=== PATIENT | male | born 1985 | race Two or more races ===

== ENCOUNTER 2017-07-07 13:18 | Emergency (ER) | payer OTHER ==
[2017-07-07 13:33] VITALS: BP 121/72; PULSE 60; RESP 18; TEMP 97.2; O2SAT 95
[2017-07-07] MEDS ORDERED: TDAP ADULT 0.5 ML INJ (BOOSTRIX) IM ONE (13:34)
--- NOTE | 2017-07-07 14:04 | EDPHY ---
H & P Time Seen by Provider: 07/07/17 13:31 HPI/ROS: 32-year-old male presents complaining of right 2nd finger pain and nail bed injury that occurred yesterday. He was shoveling and with a shoveling motion ran into a PVC pipe injuring his finger, he cleaned it thoroughly yesterday it had a little bit of bleeding, he presents today because he has pain radiating from his finger into his right forearm on the radial aspect. No numbness or tingling in finger. No fevers or chills Review of systems As per HPI General no fever no chills no weakness HEENT no eye pain no eye discharge. No eye redness, no sore throat Respiratory no cough, no shortness of breath Musculoskeletal no myalgias, no joint pain Heme no easy bruising, no easy bleeding Endo no polyuria, no polydipsia Skin no rashes, no pruritus Past Medical/Surgical History: Noncontributory Social History: Denies drug use, alcohol socially Smoking Status: Former smoker Physical Exam: 32-year-old male Alert and oriented in no acute distress nontoxic appearance, afebrile Atraumatic normocephalic Neck no JVD Lungs clear to auscultation, no respiratory distress Heart regular rate and rhythm Extremities no cyanosis clubbing edema Right hand Right 2nd finger-good capillary refill, full range of motion Mid nail with laceration, not removed No swelling of PIP, DIP, MCP Full range of motion of digits, wrist and elbow Constitutional: Initial Vital Signs Temperature (C) 36.2 C 07/07/17 13:31 Heart Rate 60 07/07/17 13:31 Respiratory Rate 18 07/07/17 13:31 Blood Pressure 121/72 H 07/07/17 13:31 O2 Sat (%) 95 07/07/17 13:31 O2 Delivery Mode Room Air Allergies/Adverse Reactions: No Known Allergies Allergy (Unverified 07/07/17 13:31) Home Medications: Medication Instructions Recorded Cephalexin 500 mg PO BID #14 tablet 07/07/17 Ibuprofen 600 mg PO Q6 PRN #24 tablet 07/07/17 Medical Decision Making - Diagnostics Imaging Results: Imaging Impressions Hand X-Ray 07/07/17 13:38 Impression: 1. Nondisplaced fracture distal tuft right second digit. ED Course/Re-evaluation: Patient seen and evaluated for right 2nd finger injury. X-ray positive for distal tuft nondisplaced fracture of right 2nd finger Wound cleansed Splint for protection Impression Distal tuft fracture right 2nd finger Nail with laceration likely underlying nail bed laceration Plan Tetanus update Cephalexin 1st dose here, discharged with prescription for 500 twice daily x7 days Ibuprofen 600 q.6h p.r.n. pain take with food Follow-up with Orthopedic Hand as this is a workman's comp injury Differential Diagnosis: Differential diagnosis considered but not limited to: Finger contusion, distal tuft finger fracture, hand fracture - Data Points Medications Given: Discontinued Medications Cephalexin HCl (Keflex) 500 mg PO EDNOW ONE PRN Reason: Protocol Stop: 07/07/17 14:18 Last Admin: 07/07/17 14:34 Dose: 500 mg Diphtheria/Tetanus/Acell Pertussis (Boostrix) 0.5 ml IM .ONCE ONE Stop: 07/07/17 13:35 Last Admin: 07/07/17 13:48 Dose: 0.5 ml Departure - Departure Disposition: Home, Routine, Self-Care Clinical Impression: Closed fracture of tuft of distal phalanx of finger Condition: Good Instructions: Finger Fracture (ED) Referrals: NONE *PRIMARY CARE P,. [Primary Care Provider] - As per Instructions Yahir Palomino MD [Medical Doctor] - As per Instructions Prescriptions: Cephalexin 500 mg PO BID #14 tablet Ibuprofen 600 mg PO Q6 PRN #24 tablet PRN Reason: Pain, Moderate Print Language: Brazilian
[2017-07-07] MEDS ORDERED: CEPHALEXIN 500 MG CAP PO ONE (14:17)
== END 2017-07-07 14:29 | disposition home or self-care (01) ==
LOC: CED 13:18
DX: S62.660A Nondisplaced fracture of distal phalanx of right index finger, initial encounter for closed fracture (principal); Z87.891 Personal history of nicotine dependence; W22.8XXA Striking against or struck by other objects, initial encounter
CPT/HCPCS: 73130-PO; L3925